=== PATIENT | male | born 1995 | race Asian ===

== ENCOUNTER 2017-06-12 14:32 | Emergency (ER) | payer OTHER ==
[~2017-06-12] VITALS: Ht 177.8 cm; Wt 60.3 kg
[2017-06-12] MEDS ORDERED: DOXYCYCLINE HYCLATE 100 MG TABLET PO ONE (15:30)
[2017-06-12] MEDS ORDERED: DOXY100C2 PO (15:31)
[2017-06-12] MEDS ORDERED: IBUP-1007 PO (15:31)
--- NOTE | 2017-06-12 15:31 | PHYS DOC ---
Past Medical History Past Medical History: No Pertinent History, Other Additional Past Medical Histor: treated for tb Past Surgical History: No Surgical History Alcohol Use: Occasionally Drug Use: None Adult General Chief Complaint Chief Complaint: ABSCESS HPI HPI Patient is a 21 year old male who presents with complaint of abscess of the right thigh for the past 5 days. Patient states that the abscess is located on his right inner thigh. Patient states that it has been draining over the past couple days. Patient notes that over the past 2 days he has started developing redness and pain along his right groin superior to the abscess. Patient denies any fevers, nausea, abdominal pain, or diaphoresis. Patient has not taken any medications for his symptoms. The patient also notes that he is having pain to his left middle finger which has been present over the past 4 weeks. Patient states that he injured his middle finger while playing soccer approximately one month ago. Patient states that he had swelling to the hand which has subsided, however he is still having pain along the base of the left middle finger. Patient states he is able to bend and extend the finger but states that he does have pain associated with it. Patient rates his overall pain as 6 out of 10 both involving his finger and the area of redness and swelling on his right thigh. Review of Systems Review of Systems Constitutional: Denies fever or chills [] Eyes: Denies change in visual acuity, redness, or eye pain [] HENT: Denies nasal congestion or sore throat [] Respiratory: Denies cough or shortness of breath [] Cardiovascular: Denies chest pain or edema [] GI: Denies abdominal pain, nausea, vomiting, bloody stools or diarrhea [] : Denies dysuria or hematuria [] Musculoskeletal: Left middle finger pain [] Integument: Redness, swelling, and tenderness along right groin and right inner thigh [] Neurologic: Denies headache, focal weakness or sensory changes [] Allergies Allergies No known drug allergies Physical Exam Physical Exam Constitutional: Alert, afebrile, no acute distress. [] HENT: Normocephalic, atraumatic, bilateral external ears normal, oropharynx moist, no oral exudates, nose normal. [] Eyes: PERRLA, EOMI, conjunctiva normal, no discharge. [] Neck: Normal range of motion, no tenderness, supple, no stridor. [] Cardiovascular:Heart rate regular rhythm, no murmur [] Lungs & Thorax: Bilateral breath sounds clear to auscultation [] Abdomen: Bowel sounds normal, soft, no tenderness, no masses, no pulsatile masses. [] Skin: Warm, dry, no erythema, no rash. [] Back: No tenderness, no CVA tenderness. [] Extremities: 2 cm open draining abscess to distal aspect of right medial thigh, 3 cm confluence area of erythema with enlarged lymph node at the anterior aspect of right groin above thigh, tender to palpation, no fluctuance, no cyanosis, no clubbing, tenderness to palpation along base of left middle finger , full range of motion present, normal alignment present, no edema. [] Neurologic: Alert and oriented X 3, normal motor function, normal sensory function, no focal deficits noted. [] Current Patient Data Vital Signs Vital Signs Date Time Temp Pulse Resp B/P (MAP) Pulse Ox O2 Delivery O2 Flow Rate FiO2 06/12/17 14:59 98.3 75 18 97 Room Air 98.3 Lab Values Not performed EKG EKG Not performed [] Radiology/Procedures Radiology/Procedures Not performed [] Course & Med Decision Making Course & Med Decision Making Pertinent Labs and Imaging studies reviewed. (See chart for details) The patient's abscess on the distal portion of the right medial thigh appears to be draining with minimal surrounding induration. The patient however does appear to have reactive lymphadenitis in the right groin. The patient was started on doxycycline for treatment. The patient's left middle finger appears in normal alignment and with full range of motion. Differential includes sprain versus nondisplaced fracture which is likely healing given the chronicity of this injury. The patient does not require splinting at this time and x-rays are not indicated. The patient will be continued on ibuprofen and doxycycline for treatment. Advised application of warm compresses to affected areas on the leg. Advise follow-up in 3-5 days a primary doctor and return to emergency department for any worsening symptoms. Patient voiced understanding and in agreement with treatment plan. Dragon Disclaimer Dragon Disclaimer This electronic medical record was generated, in whole or in part, using a voice recognition dictation system. Departure Departure Impression: Primary Impression: Lymphadenitis Additional Impressions: Cellulitis Injury of left middle finger Disposition: 01 HOME, SELF-CARE Condition: IMPROVED Referrals: ADINA HOOD MD (PCP) Patient Instructions: Cellulitis, Finger Sprain Additional Instructions: Follow-up in 3-5 days with primary doctor for reevaluation. Return to the emergency department for any worsening symptoms. Scripts Doxycycline Hyclate (DOXYCYCLINE HYCLATE) 100 Mg Capsule 1 CAP PO BID, #20 CAP Prov: JYOTHI LUX MD 06/12/17 Ibuprofen (IBUPROFEN) 600 Mg Tablet 600 MG PO Q6HRS Y for INFLAMMATION, #30 TAB Prov: JYOTHI LUX MD 06/12/17 Problem Qualifiers Additional Impressions: Cellulitis Site of cellulitis: extremity Site of cellulitis of extremity: lower extremity Laterality: right Qualified Codes: L03.115 - Cellulitis of right lower limb Injury of left middle finger Encounter type: initial encounter Qualified Codes: S69.92XA - Unspecified injury of left wrist, hand and finger(s), initial encounter JYOTHI LUX MD Jun 12, 2017 15:31
[2017-06-12 15:57] VITALS: BP 112/63
== END 2017-06-12 15:58 | disposition home or self-care (01) ==
LOC: ER 14:32
DX: S69.92XA Unspecified injury of left wrist, hand and finger(s), initial encounter (principal); L03.115 Cellulitis of right lower limb; I88.9 Nonspecific lymphadenitis, unspecified; X58.XXXA Exposure to other specified factors, initial encounter; Y92.89 Other specified places as the place of occurrence of the external cause; Y99.8 Other external cause status; Y93.66 Activity, soccer
CPT/HCPCS: 99283